=== PATIENT | female | born 1940 | race Caucasian/White ===

== ENCOUNTER 2017-12-02 12:45 | Inpatient (IN) | payer OTHER ==
[~2017-12-02] VITALS: Ht 165.1 cm; Wt 68.4 kg
[2017-12-02 14:06] LABS: HEMATOCRIT 44.2 % (36.0-46.0); HEMOGLOBIN 14.8 G/DL (11.9-15.5); MCH 29.9 PG (29.0-34.0); MCHC 33.5 G/DL (30.0-36.0); MCV 89.3 FL (83-99); RBC DIS.WIDTH-CV 12.6 % (11.8-14.6); RBC DIS.WIDTH-SD 41.4 % (39-53); RED BLOOD COUNT 4.95 M/uL (3.80-5.20); WHITE BLOOD COUNT 9.8 K/uL (4.1-10.2)
[2017-12-02 14:18] LABS: PTT 26.9 SEC (25-37)
[2017-12-02 14:34] LABS: ALBUMIN 4.4 G/DL (3.2-4.8); ALKALINE PHOSPHATASE 151 IU/L (3-129); ALT (GPT) 16 IU/L (3-49); AST (GOT) 23 IU/L (2-34); CHLORIDE 104 MEQ/L (99-109); CREATININE 0.7 MG/DL (0.6-1.3); GFR ESTIMATE (CALCULATED) > 59 mL/min/; GLUCOSE 88 mg/dL (70-99); POTASSIUM 3.8 MEQ/L (3.7-5.4); SODIUM 141 MEQ/L (136-147); TOTAL BILIRUBIN 0.5 MG/DL (0.0-1.0); TOTAL PROTEIN 7.9 G/DL (6.4-8.3); UREA NITROGEN (BUN) 12 mg/dL (9-23)
[2017-12-02 14:49] LABS: HEMATOLOGY COMMENT 1 SN; PLAT.SUFFICIENCY ADEQUATE; PLATELET COUNT 235 K/uL (156-360)
[2017-12-02] MEDS ORDERED: GLIMEPIRIDE1 MG PO (17:14)
[2017-12-02] MEDS ORDERED: ADVIL200 MG PO (17:15)
[2017-12-02] MEDS ORDERED: B-COMPLEX-VITA1 EACH PO (17:15)
[2017-12-02] MEDS ORDERED: CELECOXIB200 MG PO (17:15)
[2017-12-02] MEDS ORDERED: [UNRECOGNIZED DRUG - REMARK] (17:17)
[2017-12-02 23:44] VITALS: BP 167/79
[2017-12-03 04:10] VITALS: BP 137/60
[2017-12-03 06:18] LABS: HEMOGLOBIN 11.9 G/DL (11.9-15.5); MCV 90.2 FL (83-99)
[2017-12-03 07:43] VITALS: BP 153/73
[2017-12-03 12:05] VITALS: BP 160/70
[2017-12-03 16:16] VITALS: BP 139/77
[2017-12-03 19:20] VITALS: BP 164/95
[2017-12-03 23:49] VITALS: BP 151/71
[2017-12-04 08:16] VITALS: BP 151/66
[2017-12-04] MEDS ORDERED: ASPIR-LOW81 MG PO (11:26)
[2017-12-04] MEDS ORDERED: GLIMEPIRIDE1 MG PO (11:27)
[2017-12-04] MEDS ORDERED: ENDOCET 5-3251 EACH PO (11:27)
[2017-12-04] MEDS ORDERED: GABAPENTIN300 MG PO (19:03)
[2017-12-04] MEDS ORDERED: [UNRECOGNIZED DRUG - REMARK] (19:07)
== END 2017-12-04 12:52 | DRG 482 ==
LOC: EME 12:45 → EDOF 17:01 → 3EAST 17:01 → ENRESERV 17:02 → 3EAST 23:03
PROVIDERS: Emergency Medicine Emergency Medical Services; Orthopaedic Surgery
PROC: 0QH734Z Insertion of Internal Fixation Device into Left Upper Femur, Percutaneous Approach (ICD-10-PCS; principal; 2017-12-02)
DX: S72.145A Nondisplaced intertrochanteric fracture of left femur, initial encounter for closed fracture (principal); E11.9 Type 2 diabetes mellitus without complications; R29.6 Repeated falls; W01.0XXA Fall on same level from slipping, tripping and stumbling without subsequent striking against object, initial encounter; Z96.651 Presence of right artificial knee joint; Y92.009 Unspecified place in unspecified non-institutional (private) residence as the place of occurrence of the external cause; Z79.84 Long term (current) use of oral hypoglycemic drugs
CPT/HCPCS: 71045; 73502; 76000; 80053; 82948; 85014; 85018; 85027; 85610; 85730; 86850; 86870; 86900; 86901; 86905; 86920; 93005; 94799; 97530 GP; 99281; 99285; C1713; J0131; J0690; J1170; J1885; J3010; J7030

== ENCOUNTER 2017-12-04 10:33 | Inpatient (IN) | payer OTHER ==
[~2017-12-04] VITALS: Ht 165.1 cm; Wt 71.8 kg
[~2017-12-04 10:33] MED LIST: ADVIL200 MG PO; B-COMPLEX-VITA1 EACH PO; CELECOXIB200 MG PO; GLIMEPIRIDE1 MG PO; [UNRECOGNIZED DRUG - REMARK]
[2017-12-04] MEDS ORDERED: ASPIR-LOW81 MG PO (11:26)
[2017-12-04] MEDS ORDERED: ENDOCET 5-3251 EACH PO (11:27)
[2017-12-04] MEDS ORDERED: GLIMEPIRIDE1 MG PO (11:27)
[2017-12-04 13:04] VITALS: BP 134/72
[2017-12-04 15:48] VITALS: BP 159/73
[2017-12-04] MEDS ORDERED: GABAPENTIN300 MG PO (19:03)
[2017-12-04] MEDS ORDERED: [UNRECOGNIZED DRUG - REMARK] (19:07)
[2017-12-05 00:05] VITALS: BP 162/73
[2017-12-05 05:41] VITALS: BP 170/79
[2017-12-05 06:41] LABS: ALBUMIN 3.3 G/DL (3.2-4.8); ALT (GPT) 9 IU/L (3-49); AST (GOT) 21 IU/L (2-34); CHLORIDE 104 MEQ/L (99-109); CREATININE 0.7 MG/DL (0.6-1.3); GFR ESTIMATE (CALCULATED) > 59 mL/min/; POTASSIUM 3.8 MEQ/L (3.7-5.4); SODIUM 138 MEQ/L (136-147); TOTAL BILIRUBIN 0.6 MG/DL (0.0-1.0); UREA NITROGEN (BUN) 12 mg/dL (9-23)
[2017-12-05 06:42] LABS: ALKALINE PHOSPHATASE 91 IU/L (3-129); GLUCOSE 138 mg/dL (70-99); TOTAL PROTEIN 6.3 G/DL (6.4-8.3)
[2017-12-05 06:48] LABS: HEMATOCRIT 32.5 % (36.0-46.0); HEMOGLOBIN 10.3 G/DL (11.9-15.5); MCHC 31.7 G/DL (30.0-36.0); MCV 91.5 FL (83-99); RBC DIS.WIDTH-CV 12.8 % (11.8-14.6); RBC DIS.WIDTH-SD 42.5 % (39-53); WHITE BLOOD COUNT 7.6 K/uL (4.1-10.2)
[2017-12-05 06:49] LABS: RED BLOOD COUNT 3.55 M/uL (3.80-5.20)
[2017-12-05 07:24] LABS: PLAT.SUFFICIENCY ADEQUATE
[2017-12-05 07:34] LABS: PLATELET COUNT 155 K/uL (156-360)
[2017-12-05 15:49] VITALS: BP 147/78
[2017-12-06 03:35] VITALS: BP 178/76
[2017-12-06 05:22] VITALS: BP 178/76
[2017-12-06 14:30] VITALS: BP 131/62
[2017-12-07 05:26] VITALS: BP 148/65
[2017-12-07 14:58] VITALS: BP 141/82
[2017-12-08 04:57] VITALS: BP 159/71
[2017-12-08 07:08] LABS: HEMATOCRIT 35.1 % (36.0-46.0); HEMOGLOBIN 11.1 G/DL (11.9-15.5); MCH 29.1 PG (29.0-34.0); MCHC 31.6 G/DL (30.0-36.0); MCV 92.1 FL (83-99); RBC DIS.WIDTH-CV 12.9 % (11.8-14.6); RBC DIS.WIDTH-SD 43.5 % (39-53); RED BLOOD COUNT 3.81 M/uL (3.80-5.20); WHITE BLOOD COUNT 6.6 K/uL (4.1-10.2)
[2017-12-08 07:11] LABS: PLATELET COUNT 205 K/uL (156-360)
[2017-12-08 08:04] LABS: CHLORIDE 104 MEQ/L (99-109); CREATININE 0.6 MG/DL (0.6-1.3); GFR ESTIMATE (CALCULATED) > 59 mL/min/; GLUCOSE 148 mg/dL (70-99); POTASSIUM 4.1 MEQ/L (3.7-5.4); SODIUM 141 MEQ/L (136-147); THYROTROPIN (TSH) 0.83 MIU/L (0.4-5.5); UREA NITROGEN (BUN) 12 mg/dL (9-23)
[2017-12-08] MEDS ORDERED: ENDOCET 5-3251 EACH PO (11:30)
[2017-12-08 15:22] VITALS: BP 141/79
[2017-12-09 04:38] VITALS: BP 150/70
== END 2017-12-09 13:56 | disposition home or self-care (01) | DRG 560 ==
LOC: 3WEST 10:33
PROVIDERS: Physical Medicine & Rehabilitation Pain Medicine
PROC: F07M0ZZ Range of Motion and Joint Mobility Treatment of Musculoskeletal System - Whole Body (ICD-10-PCS; principal; 2017-12-04)
DX: Z47.89 Encounter for other orthopedic aftercare (principal); S72.142D Displaced intertrochanteric fracture of left femur, subsequent encounter for closed fracture with routine healing; Z98.890 Other specified postprocedural states; R26.9 Unspecified abnormalities of gait and mobility; E11.9 Type 2 diabetes mellitus without complications; W19.XXXD Unspecified fall, subsequent encounter; Z96.651 Presence of right artificial knee joint; I10 Essential (primary) hypertension; M19.90 Unspecified osteoarthritis, unspecified site; Z79.82 Long term (current) use of aspirin; Z79.84 Long term (current) use of oral hypoglycemic drugs; M62.838 Other muscle spasm; G89.18 Other acute postprocedural pain; D62 Acute posthemorrhagic anemia
CPT/HCPCS: 80048; 80053; 82948; 84443; 85027; 97110 GO; 97530 GP